=== PATIENT | male | born 1955 | race Caucasian/White ===

== ENCOUNTER → 2016-11-20 | Outpatient (CLI) | payer OTHER ==
--- NOTE | 2016-11-20 13:55 | RADIOLOGY REPORT (SQ) ---
EXAM DESCRIPTION: U/S RETROPERITON (RENAL/AORTA) COMPLETED DATE/TIME: 11/20/2016 12:48 pm REASON FOR STUDY: RETENTION OF URINE, UNSPEC (R33.9) R33.9 RETENTION OF URINE, UNSPECIFIED COMPARISON: None. TECHNIQUE: Dynamic and static grayscale images acquired of the kidneys and bladder and recorded on P ACS. Additional selected color Doppler and spectral images recorded. LIMITATIONS: None. FINDINGS: RIGHT KIDNEY: Normal size. Normal echogenicity. No solid or suspicious masses. No h ydronephrosis. No calcifications. LEFT KIDNEY: Normal size. Normal echogenicity. No solid or suspicious masses. No hydronephrosi s. No calcifications. BLADDER: No masses. Pre voiding volume 88 cc, postvoid volume 32 cc. OTHER FINDINGS: Prostate 4.5 x 4.7 x 3.6 cm. IMPRESSION: Postvoid residual 32 cc. TECHNICAL DOCUMENTATION: JOB ID: [id number]- All Rights Reserved
== END ==
LOC: RAD 11:17
PROVIDERS: ATTEND Urology
DX: R33.9 Retention of urine, unspecified (principal)
CPT/HCPCS: 76770